=== PATIENT | female | born 1990 | race Caucasian/White ===

== ENCOUNTER 2017-02-14 23:37 | Emergency (ER) | payer BC ==
[2017-02-15 01:29] LABS: Hematocrit 39 % (35-47); Hemoglobin 13.4 g/dl (12.0-16.0); Mean Corpuscular HGB Conc 35 g/dl (31-36); Mean Corpuscular Hemoglobin 30 pg (27-31); Mean Corpuscular Volume 86 fL (80-97); Mean Platelet Volume 7 um3 (7.4-10.4); Red Cell Distribution Width 12 % (10.5-15); White Blood Count 6.9 10^3/ul (3.5-10.8)
[2017-02-15 01:50] LABS: ALT 14 U/L (7-52); AST 15 U/L (13-39); Albumin 4.3 g/dL (3.2-5.2); Alkaline Phosphatase 54 U/L (34-104); Anion Gap 7 mmol/L (2-11); BUN/Creatinine Ratio 22.2 (8-20); Blood Urea Nitrogen 14 mg/dL (6-24); CO2 Carbon Dioxide 24 mmol/L (22-32); Calcium 9.5 mg/dL (8.6-10.3); Chloride 106 mmol/L (101-111); EGFR African American 149.3 (>60); EGFR Non-African American 116.1 (>60); Globulin 2.7 g/dL (2-4); Glucose 100 mg/dL (70-100); Lipase 20 U/L (11.0-82.0); Potassium 3.8 mmol/L (3.5-5.0); Sodium 137 mmol/L (133-145)
[2017-02-15 01:54] LABS: Urine Bacteria Absent (Absent); Urine Bilirubin Negative (Negative); Urine Glucose Negative (Negative); Urine Nitrite Negative (Negative)
[2017-02-15] MEDS ORDERED: Levofloxacin TAB* 500 MG PO ONE (03:35)
[2017-02-15] MEDS ORDERED: Ibuprofen TAB* 600 MG PO ONE (03:40)
[2017-02-15 03:53] VITALS: BP 112/76
--- NOTE | 2017-02-15 04:49 | ED ---
Carly Ortega Rebecca, scribed for Jaron Padillauel on 02/15/17 at 0040 . Abdominal Pain/Female - HPI Summary HPI Summary: Pt is a 26 y/o F who presents to ED c/o L flank pain since 1729 tonight. Pain has been constant since onset, waxing and waning in intensity and is currently moderate, ranked 4/10. Pt additionally notes intermittent, diffuse abd pain for the past few weeks whenever she is hungry which has been previously alleviated by eating. Sx aggravated by nothing, alleviated by walking. Denies hematuria, vaginal bleeding and vaginal discharge. NKDA. - History of Current Complaint Chief Complaint: EDAbdPain Stated Complaint: STOMACH/BACK PAIN Time Seen by Provider: 02/15/17 00:31 Hx Obtained From: Patient Onset/Duration: Still Present Timing: Constant Severity Currently: Moderate Pain Intensity: 4 Pain Scale Used: 0-10 Numeric Location: Flank - Left Aggravating Factor(s): Nothing Alleviating Factor(s): Nothing Associated Signs and Symptoms: Positive: Negative Allergies/Adverse Reactions: Allergies Allergy/AdvReac Type Severity Reaction Status Date / Time No Known Allergies Allergy Verified 02/02/16 17:38 PMH/Surg Hx/FS Hx/Imm Hx Endocrine/Hematology History: Denies: Hx Diabetes Cardiovascular History: Denies: Hx Coronary Artery Disease, Hx Hypertension Infectious Disease History: No Infectious Disease History: Denies: Traveled Outside the [place] in Last 30 Days - Family History Known Family History: Positive: Diabetes - Social History Alcohol Use: None Substance Use Type: Reports: None Smoking Status (MU): Never Smoked Tobacco Have You Smoked in the Last Year: No Review of Systems Positive: Abdominal Pain - sudden onset L flank pain, intermittent diffuse abd pain for the last few weeks Positive: other - NEGATIVE: vaginal bleeding. Negative: discharge, hematuria All Other Systems Reviewed And Are Negative: Yes Physical Exam - Summary Physical Exam Summary: Appearance: Well appearing, no pain distress Skin: warm, dry, reflects adequate perfusion Head/face: normal Eyes: EOMI, RENNY ENT: normal Neck: supple, nontender Respiratory: CTA, breath sounds present Cardiovascular: RRR, pulses symmetrical Abdomen: mild tenderness in the LLQ, soft Bowel: present Musculoskeletal: normal, strength/ROM intact Neuro: normal, sensory motor intact, A&Ox3 Triage Information Reviewed: Yes Vital Signs On Initial Exam: Initial Vitals Temp Pulse Resp BP Pulse Ox 97.7 F 93 14 134/80 100 02/14/17 23:38 02/14/17 23:38 02/14/17 23:38 02/14/17 23:38 02/14/17 23:38 Vital Signs Reviewed: Yes Diagnostics - Vital Signs Vital Signs Temp Pulse Resp BP Pulse Ox 02/14/17 23:38 97.7 F 93 14 134/80 100 - Laboratory Result Diagrams: 02/15/17 01:15 02/15/17 01:15 Lab Statement: Any lab studies that have been ordered have been reviewed, and results considered in the medical decision making process. - CT CT Abd/Pel CT Interpretation: No Acute Changes - Negative for right or left urinary tract stone or obstruction. No bowel obstruction, or free air. Negative for diverticulitis or colitis. Normal appendix. No acute abnormality of the liver, gallbladder, spleen, pancreas, or adrenal glands. Some free fluid in the pelvic cul-de-sac. Overall no acute intra-abdominal abnormality. ED physician reviewed this radiology report and agrees. CT Interpretation Completed By: Radiologist Re-Evaluation - Re-Evaluation First Eval Re-Evaluation Time: 03:40 Change: Improved Comment: Discussed results and D/C plan. Abdominal Pain Fem Course/Dx - Course Course Of Treatment: Pt is a 26 y/o F who presents to ED c/o L flank pain since 1729 tonight. Pain has been constant since onset, waxing and waning in intensity and is currently moderate, ranked 4/10. Pt additionally notes intermittent, diffuse abd pain for the past few weeks whenever she is hungry which has been previously alleviated by eating. Sx aggravated by nothing, alleviated by walking. Denies hematuria, vaginal bleeding and vaginal discharge. CT Abd/pel reveals: "Negative for right or left urinary tract stone or obstruction. No bowel obstruction, or free air. Negative for diverticulitis or colitis. Normal appendix. No acute abnormality of the liver, gallbladder, spleen, pancreas, or adrenal glands. Some free fluid in the pelvic cul-de-sac. Overall no acute intra-abdominal abnormality." UA reveals color: straw, appearance: clear, leukocyte esterase: 2+, squamous epithelial cells: present, RBC: trace, WBC: trace and negative for protein, ketones, blood and nitrate. In the ED course, pt was administered Motrin and Levaquin. She will be D/C to home with Dx of abdominal pain and UTI with Rx for Motrin and Levaquin and a follow up with her PCP. She understands and agrees. Elevated BP noted and advised to f /u with PCP . - Diagnoses Provider Diagnoses: Abdominal pain, UTI (urinary tract infection) Discharge - Discharge Plan Condition: Stable Disposition: HOME Prescriptions: Ibuprofen TAB* [Motrin TAB* 600 MG] 600 mg PO Q8H PRN #20 tab MDD 3 PRN Reason: Pain Levofloxacin TAB* [Levaquin TAB*] 500 mg PO DAILY #4 tab Patient Education Materials: Acute Abdominal Pain (ED), Urinary Tract Infection in Women (ED) Referrals: [facility] [place] [facility] [Outside] - 3 Days The documentation as recorded by the Carly phipps Rebecca accurately reflects the service I personally performed and the decisions made by Randy bagley Emmanuel.
--- NOTE | 2017-02-15 08:12 | RAD ---
INDICATION: Left renal colic. COMPARISON: There are no prior studies available for comparison. TECHNIQUE: A CT scan of the abdomen and pelvis was performed without intravenous or oral contrast. Contiguous axial sections were obtained from the lung bases through the symphysis pubis. Images were reconstructed in the coronal and sagittal planes. FINDINGS: The lung bases are clear. No pleural effusion is present. The liver and spleen are normal in size. There are multiple small splenic nodules which are most prominent along the anterior aspect of the spleen. The gallbladder appears distended. No calcified gallstones are seen. No pancreatic ductal distention or calcifications are seen. The adrenal glands and kidneys are normal in size. No renal calculi or hydronephrosis is seen. No ureteral or bladder calculi are seen. The aorta is normal in caliber without significant calcific plaque. No significant enlarged retroperitoneal lymph nodes are seen. The stomach, small and large bowel appear nondistended. The appendix is within normal limits. There is no evidence for diverticulitis or colitis. The uterus is retroverted and normal in size. There is a small amount of free intraperitoneal fluid in the cul-de-sac. No free intraperitoneal air is seen. No significant focal osseous abnormality is seen. The results of this exam were discussed with Dr. Mcmahon. IMPRESSION: 1. NO EVIDENCE FOR RENAL CALCULI OR HYDRONEPHROSIS. 2. SMALL AMOUNT OF FREE INTRAPERITONEAL FLUID IN THE CUL-DE-SAC. 3. MULTIPLE SMALL SPLENIC NODULES. RECOMMEND A FOLLOW-UP LEFT UPPER QUADRANT ULTRASOUND FOR FURTHER EVALUATION.
== END 2017-02-15 03:53 | disposition home or self-care (01) ==
LOC: ED 23:37
DX: N39.0 Urinary tract infection, site not specified (principal); R10.84 Generalized abdominal pain
CPT/HCPCS: 36415; 74176; 80053; 81003; 81015; 83690; 84702; 85025; 85610; 85730; 87086; 99283; A9270-GY

== ENCOUNTER 2018-06-06 11:55 | Inpatient (IN) | payer BC ==
[2018-06-06] MEDS ORDERED: Lactated Ringers 1000 ML Bag* 1,000 ML IV ONE (12:24)
--- NOTE | 2018-06-06 12:32 | HP ---
General Information - General Information Maternal Age: 27 Grav: 2 Para: 1 SAB: 0 IEA: 0 Estimated Due Date: 06/07/18 Determined By: LMP Maternal Blood Type and Rh: O Positive - Results this Serology/RPR Result: Non-Reactive Rubella Result: Immune HBsAg Result: Negative HIV Result: Negative GBS Culture Result: Negative Past Medical History Delivery History: Hx Uncomplicated Vaginal Delivery - PROM Pertinent Past Medical History: See Records - Pyelonephritis, gallbladder problems Pertinent Past Surgical History: See Records - Laser surgery, wart removal Pertinent Family History: See Records - sister, father deaf - Antepartal Records Antepartal Records: Reviewed, Complicated by: - gallstones, echogenic focus (NIPT normal) Review of Systems Constitutional: Comfortable - Uncomfortable with ctx, but coping well. CV Complaint: No Respiratory: Shortness of Breath: No Gastrointestinal: No Nausea/Vomiting, Normal Bowel Movement Genitourinary: No Dysuria, No Bleeding, No Leaking Fluid Musculoskeletal: No Epigastric Pain, Contractions Neurological: No Headache, No Visual Changes Movement: Normal Exam Allergies/Adverse Reactions: Allergies No Known Allergies Allergy (Verified 02/02/16 17:38) T-98.1, P-74, R-18, BP 117/63, O2- 100% - Measurements Height: 5 ft 1 in Weight: 58.513 kg Weight in lbs: 129.733571 Body Mass Index (BMI): 24.3 Pre- Weight: 49.895 kg Weight Gained This : 19 lbs and 0 ozs - Exam Breast: Breast Exam Deferred CVA: No CVA Tenderness Extremities: No Edema Heart: Normal Rhythm/Heart Sounds HEENT: No Significant Findings Lungs: Clear Bilaterally Rectal: Rectal Exam Deferred Reflexes: DTR 2+ Thyroid: No Thyromegaly - Abdominal Exam Abdomen Exam: Non-Tender - Ultrasound/Biophysical Profile Ultrasound Status: Not Done Targeted Exam Findings See L&D Outpatient Visit Provider Note for Findings: N/A Estimated Weight: 7# Cervical Exam: 6cm Effacement: 100% Presenting Part: Vertex Membrane Status: Intact Bleeding/Discharge: Bloody Show EFM Findings - External Monitor Findings Baseline Heart Rate: 120 External Monitor Findings: Accelerations Present, No Pattern of Variable or Late Decelerations - early decels/ occ variables, Variability Moderate, Baseline Stable Contractions: Regular, Moderate, 45-90 Seconds Contraction Frequency: 2-3 Assessment/Plan - Assessment at 39 6/7 weeks gestation in active labor, no evidence of acidemia, GBS negative, membranes intact. - Plan Plan: Admit - Anticipate Vaginal Delivery
[2018-06-06] MEDS ORDERED: Lactated Ringers 1000 ML Bag* 1,000 ML IV SCH ×2 (13:00→17:00)
[2018-06-06] MEDS ORDERED: Witch Hazel PAD* JAR ONE (16:08)
[2018-06-06] MEDS ORDERED: Dibucaine 1% 28.35 GM TUBE ONE (16:08)
[2018-06-06] MEDS ORDERED: OXYTOCIN* 10 UNITS/ML 1 ML VIAL ONE (16:15)
[2018-06-06] MEDS ORDERED: Witch Hazel PAD* JAR TOPICAL PRN (16:36)
[2018-06-06] MEDS ORDERED: Acetaminophen TAB* 325 MG PO PRN (16:36)
[2018-06-06] MEDS ORDERED: Dibucaine 1% 28.35 GM TUBE PR PRN (16:36)
[2018-06-06] MEDS ORDERED: Glycerin ADULT SUPP PR PRN (16:36)
[2018-06-06] MEDS ORDERED: OXYTOCIN* 10 UNITS/ML 1 ML VIAL IM ONE (16:36)
--- NOTE | 2018-06-06 16:43 | PROCNOTE ---
[facility] OB: Delivery Note - Delivery A Date of : 06/06/18 Time of : 15:48 [place] Sex: Male Weight at : 3.554 kg Score 1 Minute: 9 Score 5 Minutes: 9 Gestational Age in Weeks and Days at Delivery: 39 Weeks and 6 Days Delivery Method: Spontaneous Vaginal Labor: Spontaneous Did Patient attempt ?: N/A, No Previous Amniotic Fluid: Clear Estimated Blood Loss: 400 Anesthesia/Analgesia: None Delivered By: Skylar Koo - Nursery Level of Nursery: Regular/Bedside - Perineum Perineal Injury: Perineal Laceration, 2nd Degree Perineal Repair: By Delivering Practioner - Events Delivery Events of Note: Pitocin Only After Delivery, Supplemental O2 to Mother - Additional Delivery Notes Additional Delivery Notes: Pt admitted to labor and delivery in active labor at 39 6/7 weeks gestation. She made steady progress in dilation and coped well using the tub, position changes, breathing, and labor support. FHR tracing initially Cat I. AROM was performed at 9cm with pt's consent to clear fluid. Pt eventually progressed to full dilation and began spontaneous pushing efforts. At that time, infant experienced prolonged deceleration into the 90's, at times returning to baseline , and at times dropping into the 80's. Position changes and O2 initially were followed by a return to baseline, but the FHR then continued to drop into the 90 's. After position changes and O2 did not resolve the deceleration, Dr. Bales was paged and came to the bedside. Pt was making good progress with pushing and her efforts were encouraged. Lidocaine injected to prepare for episiotomy, and vaccuum extractor was considered, but the pt then progressed to . Pt delivered the head OA to JAYESH and a tight double nuchal cord was noted. Shoulders and body followed with the next push, and the cord was reduced and placed on maternal abdomen with vigorous cry and good tone, HR>100. After cord pulsation ceased, cord clamped x2 and then cut by infant's father. Placenta soon delivered, spontaneous and janice. Fundas was firm and Pitocin 10 administered via IM injection. Dr. Bales asked to bedside to evaluate perineum as cervix was visible at introitus. He expressed a moderate amount of clots from the lower uterine segment, and determined that the cervix had sustained no laceration. Perineal examination revealed second degree tear with left labial extension. Repair completed in the usual fashion with layers of absorbable suture resulting in good hemostasis and tissue approximation. Infant and mother stable at this time. Anticipate normal course.
[2018-06-06] MEDS: Ibuprofen TAB* 600 MG PO PRN ×2 (17:29→23:47)
[2018-06-06] MEDS ORDERED: Ammonia Inhalant* 1 EA AMP ONE (19:17)
[2018-06-06] MEDS: Docusate CAP* 100 MG PO SCH (23:47)
[2018-06-07 06:11] LABS: ABS Basophils 0.1 10^3/ul (0-0.2); ABS Eosinophils 0 10^3/ul (0-0.6); ABS Lymphocytes 2.2 10^3/ul (1.0-4.8); ABS Neutrophils 8.7 10^3/ul (1.5-7.7); ABS Nucleated RBC 0 10^3/ul; Eosinophil % 0.1 %; Hematocrit 31 % (35-47); Hemoglobin 10.9 g/dl (12.0-16.0); Lymphocyte % 18.2 %; Mean Corpuscular HGB Conc 35 g/dl (31-36); Mean Corpuscular Hemoglobin 32 pg (27-31); Mean Corpuscular Volume 93 fL (80-97); Mean Platelet Volume 6.8 fL (7.4-10.4); Nucleated Red Blood Cells % 0; Platelet Count 154 10^3/ul (150-450); Red Blood Count 3.37 10^6/ul (4.00-5.40); Red Cell Distribution Width 14 % (10.5-15); White Blood Count 11.9 10^3/ul (3.5-10.8)
[2018-06-07] MEDS: Ibuprofen TAB* 600 MG PO PRN ×3 (06:38→20:50)
[2018-06-07] MEDS: Docusate CAP* 100 MG PO SCH ×3 (08:06→20:50)
[2018-06-07] MEDS ORDERED: Ferrous Gluconate TAB* 324 MG TAB PO SCH (09:00)
[2018-06-08 08:07] VITALS: BP 106/66
[2018-06-08] MEDS: Ibuprofen TAB* 600 MG PO PRN (08:15)
[2018-06-08] MEDS: Docusate CAP* 100 MG PO SCH (08:15)
== END 2018-06-08 13:21 | disposition home or self-care (01) | DRG 560 ==
LOC: MCHOBOUT 11:55 → MCHOB 12:07
PROVIDERS: ADMIT Midwife; ATTEND Midwife
PROC: 10E0XZZ Delivery of Products of Conception, External Approach (ICD-10-PCS; principal; 2018-06-06)
PROC: 0KQM0ZZ Repair Perineum Muscle, Open Approach (ICD-10-PCS; 2018-06-06)
PROC: 4A1HXCZ Monitoring of Products of Conception, Cardiac Rate, External Approach (ICD-10-PCS; 2018-06-06)
PROC: 10907ZC Drainage of Amniotic Fluid, Therapeutic from Products of Conception, Via Natural or Artificial Opening (ICD-10-PCS; 2018-06-06)
DX: O69.1XX0 Labor and delivery complicated by cord around neck, with compression, not applicable or unspecified (principal); O22.43 Hemorrhoids in pregnancy, third trimester; Z37.0 Single live birth; Z3A.39 39 weeks gestation of pregnancy; O70.1 Second degree perineal laceration during delivery; O76 Abnormality in fetal heart rate and rhythm complicating labor and delivery
CPT/HCPCS: 36415; 85025; A9270-GY; J2590

== ENCOUNTER 2020-10-22 04:19 | Inpatient (IN) ==
[2020-10-22] MEDS ORDERED: Buffered Lidocaine 1% SYRIN 1 ml INTRADERM ONE (06:02)
[2020-10-22] MEDS ORDERED: Penicillin G Potassium IV 5,000,000 UNITS in NS 0.9% 100 ml BAG 100 ML IVPB ONE (06:02)
[2020-10-22] MEDS ORDERED: Lactated Ringers 1000 ml BAG 1,000 ML IV ONE ×2 (06:02→13:04)
[2020-10-22 07:00] LABS: ABS Lymphocytes 1.4 10^3/ul (1.0-4.8); ABS Monocytes 0.6 10^3/ul (0-0.8); ABS Neutrophils 7.2 10^3/ul (1.5-7.7); Eosinophil % 0.1 %; Hematocrit 32 % (35-47); Hemoglobin 11.1 g/dL (12.0-16.0); Lymphocyte % 15.4 %; Mean Corpuscular HGB Conc 35 g/dL (31-36); Mean Corpuscular Hemoglobin 32 pg (27-31); Mean Corpuscular Volume 91 fL (80-97); Mean Platelet Volume 7.7 fL (7.4-10.4); Platelet Count 153 10^3/uL (150-450); Red Blood Count 3.51 10^6 /uL (3.70-4.87); Red Cell Distribution Width 14 % (10-15); White Blood Count 9.2 10^3/uL (3.5-10.8)
[2020-10-22] MEDS ORDERED: Lactated Ringers 1000 ml BAG 1,000 ML IV SCH ×3 (07:00→17:00)
[2020-10-22 07:17] LABS: Urine Benzodiazepine Screen None Detected (None Detect); Urine Cannabinoids Screen None Detected (None Detect); Urine Opiates Screen None Detected (None Detect)
[2020-10-22] MEDS ORDERED: Oxytocin in LR 20 UNITS/1,000 ML BAG IVPB SCH ×2 (09:00→17:00)
[2020-10-22] MEDS ORDERED: Penicillin G Potassium IV 3,000,000 UNITS in NS 0.9% 100 ml BAG 100 ML IVPB SCH (11:00)
[2020-10-22] MEDS ORDERED: OBEPIDURAL 250 ML EPIDURAL ONE (11:37)
[2020-10-22] MEDS ORDERED: EPHEDrine (Pressors) 50 MG/ML VIAL IV PUSH PRN ×2 (13:04)
[2020-10-22] MEDS ORDERED: Phenylephrine 40 mcg/mL 10mL (400mcg) SYRINGE IV PUSH PRN ×2 (13:04)
[2020-10-22] MEDS ORDERED: Sodium Citrate/Citric Acid LIQ 15 ML UDC PO PRN (13:04)
[2020-10-22] MEDS ORDERED: OBEPIDURAL 250 ML EPIDURAL SCH (14:00)
[2020-10-22] MEDS ORDERED: Witch Hazel PAD JAR TOPICAL PRN (16:22)
[2020-10-22] MEDS ORDERED: Glycerin ADULT 2.4 gm SUPP PR PRN (16:22)
[2020-10-22] MEDS ORDERED: Dibucaine 1% OINT 28.35 GM TUBE PR PRN (16:22)
[2020-10-22] MEDS ORDERED: Lidocaine 1% VIAL 10 MG/ML VIAL ONE (20:54)
[2020-10-23 06:40] LABS: ABS Lymphocytes 1.5 10^3/ul (1.0-4.8); ABS Monocytes 0.7 10^3/ul (0-0.8); ABS Neutrophils 5.6 10^3/ul (1.5-7.7); Eosinophil % 0.2 %; Hematocrit 30 % (35-47); Hemoglobin 10.2 g/dL (12.0-16.0); Lymphocyte % 19.1 %; Mean Corpuscular HGB Conc 34 g/dL (31-36); Mean Corpuscular Hemoglobin 31 pg (27-31); Mean Corpuscular Volume 92 fL (80-97); Mean Platelet Volume 7.4 fL (7.4-10.4); Platelet Count 132 10^3/uL (150-450); Red Blood Count 3.23 10^6 /uL (3.70-4.87); Red Cell Distribution Width 14 % (10-15); White Blood Count 7.8 10^3/uL (3.5-10.8)
[2020-10-24 08:19] VITALS: BP 100/54
== END 2020-10-24 14:52 | disposition home or self-care (01) | DRG 560 ==
LOC: MCHOBOUT 04:19 → MCHOB 05:36
PROVIDERS: ADMIT Midwife; ATTEND Midwife

== ENCOUNTER 2023-02-21 04:32 | Inpatient (IN) ==
[2023-02-21 05:07] LABS: ABS Basophils 0.1 10^3/uL (0.0-0.1); ABS Lymphocytes 2.2 10^3/uL (1.0-4.8); ABS Monocytes 0.5 10^3/uL (0.0-0.9); ABS Neutrophils 6.7 10^3/uL (1.5-7.6); Hematocrit 32.8 % (35-45); Hemoglobin 11.7 g/dL (11.5-14.3); Lymphocyte % 23.4 %; Mean Corpuscular Hemoglobin 32.1 pg (27-33); Mean Corpuscular Hgb Conc 35.7 g/dL (31-36); Mean Corpuscular Volume 89.9 fL (80-97); Mean Platelet Volume 6.5 fL (7.5-11.2); Platelet Count 168 10^3/uL (150-450); Red Blood Count 3.65 10^6/uL (3.63-4.92); Red Cell Distribution Width 13.5 % (12-17); White Blood Count 9.5 10^3/uL (3.8-11.8)
[2023-02-21] MEDS ORDERED: Penicillin G Potassium IV 5,000,000 UNITS in NS 0.9% 100 ml BAG 100 ML IVPB ONE (05:11)
[2023-02-21] MEDS ORDERED: Buffered Lidocaine 1% SYRIN 1 ml INTRADERM ONE (05:11)
[2023-02-21] MEDS ORDERED: Lidocaine 1% VIAL 10 MG/ML 30 ML VIAL INJ PRN (05:11)
[2023-02-21] MEDS ORDERED: Lactated Ringers 1000 ml BAG 1,000 ML IV ONE ×2 (05:11→08:50)
[2023-02-21 05:31] LABS: Urine Benzodiazepine Screen None Detected (None Detect); Urine Opiates Screen None Detected (None Detect)
[2023-02-21] MEDS: Lactated Ringers 1000 ml BAG 1,000 ML IV SCH ×2 (05:53→09:08)
[2023-02-21] MEDS ORDERED: OBEPIDURAL (200 ML) 200 ML EPIDURAL ONE (08:12)
[2023-02-21] MEDS ORDERED: Lidocaine 1.5% EPI 1:200,000 30 ML SDV ONE (08:12)
[2023-02-21] MEDS ORDERED: Bupivacaine 0.5% SDV PF 30ML VIAL ONE (08:17)
[2023-02-21] MEDS ORDERED: Phenylephrine 40 mcg/mL 10mL (400mcg) SYRINGE IV PUSH PRN ×2 (08:50)
[2023-02-21] MEDS ORDERED: OBEPIDURAL (200 ML) 200 ML EPIDURAL SCH (09:00)
[2023-02-21] MEDS ORDERED: Lactated Ringers 1000 ml BAG 1,000 ML IV SCH ×2 (09:00→15:00)
[2023-02-21] MEDS: Penicillin G Potassium IV 3,000,000 UNITS in NS 0.9% 100 ml BAG 100 ML IVPB SCH ×2 (09:56→14:43)
[2023-02-21 10:19] LABS: Urine Appearance Clear; Urine Bacteria Absent (Absent); Urine Bilirubin Negative (Negative); Urine Blood 2+ (Negative); Urine Color Yellow; Urine Glucose Negative (Negative); Urine Ketones 2+ (Negative); Urine Nitrite Negative (Negative); Urine Protein 1+(30 mg/dL) (Negative); Urine Red Blood Cell 3+(>10/hpf) (Absent); Urine Specific Gravity 1.031 (1.002-1.030); Urine Squamous Epithelial Cell Present (Absent); Urine Urobilinogen Negative (Negative); Urine White Blood Cell Trace(0-5/hpf) (Absent)
[2023-02-21] MEDS ORDERED: Oxytocin in LR 20,000 MILLI.UNIT/1,000 ML BAG IV SCH ×2 (12:55→14:40)
[2023-02-21] MEDS ORDERED: Witch Hazel PAD JAR TOPICAL PRN (14:38)
[2023-02-21] MEDS ORDERED: Dibucaine 1% OINT 28.35 GM TUBE PR PRN (14:38)
[2023-02-21] MEDS ORDERED: Glycerin ADULT 2.4 gm SUPP PR PRN (14:38)
[2023-02-22 08:25] LABS: ABS Lymphocytes 1.7 10^3/uL (1.0-4.8); ABS Monocytes 0.4 10^3/uL (0.0-0.9); ABS Neutrophils 5.4 10^3/uL (1.5-7.6); Eosinophil % 0.2 %; Hematocrit 28.2 % (35-45); Hemoglobin 10.1 g/dL (11.5-14.3); Lymphocyte % 22.6 %; Mean Corpuscular Hemoglobin 32.3 pg (27-33); Mean Corpuscular Hgb Conc 35.8 g/dL (31-36); Mean Corpuscular Volume 90.3 fL (80-97); Mean Platelet Volume 6.7 fL (7.5-11.2); Platelet Count 152 10^3/uL (150-450); Red Blood Count 3.13 10^6/uL (3.63-4.92); Red Cell Distribution Width 13.8 % (12-17); White Blood Count 7.6 10^3/uL (3.8-11.8)
[2023-02-23 07:50] VITALS: BP 108/70
== END 2023-02-23 15:02 | disposition home or self-care (01) | DRG 560 ==
LOC: MCHOBOUT 04:32 → MCHOB 05:07
PROVIDERS: ADMIT Midwife; ATTEND Midwife